=== PATIENT | male | born 1960 | race Caucasian/White ===

== ENCOUNTER 2023-11-14 18:34 | Emergency (ER) | payer OTHER, BC, SELFPAY ==
[2023-11-14 18:49] VITALS: BP 155/89; PULSE 66; RESP 18; TEMP 36.1; O2SAT 96; BMI 34.8
--- NOTE | 2023-11-14 22:26 | ED_ITS ---
HPI - Wound/Laceration General Chief Complaint: Wound/Laceration Stated Complaint: left finger laceration Time Seen by Provider: 11/14/23 22:20 Source: patient Mode of arrival: ambulatory Limitations: no limitations History of Present Illness ED Provider: Mickey Sinha PA-C HPI narrative: 63 yo male presents to the ER for evaluation of a laceration to the distal left middle finger after he cut it on a box at work. sustained a flap laceration that initially bled a lot but stopped w/ pressure. he can bend and flex the finger. no numbness or tingling. tdap up to date Onset (ago): hour(s) Place: work Patient tetanus UTD: Yes Context: accidental Associated symptoms: none Treatments prior to arrival: bandage Related Data Allergies Allergy/AdvReac Type Severity Reaction Status Date / Time No Known Allergies Allergy Verified 11/14/23 18:53 Review of Systems Review of Systems: Yes all other systems are reviewed and are negative PMFSH Social History Social History Advance Directives: No Advance Directives Information Provided: No Do you have a plan to hurt others: No Plan Physical Exam Vital Signs: Vital Signs: Last Vital Signs Temp 96.8 F 11/14/23 22:49 Pulse 87 11/14/23 22:49 Resp 16 11/14/23 22:49 BP 139/86 11/14/23 22:49 Pulse Ox 97 11/14/23 22:49 O2 Del Method Room Air 11/14/23 22:49 BMI result Body Mass Index 34.8 Appearance: Alert. Oriented X3. No acute distress. HEENT: normal inspection CVS: Normal heart rate and rhythm. Pulses normal. Respiratory: No respiratory distress. Skin: Skin warm and dry. Normal skin color. Normal skin turgor. No rashes. Extremities: small U- shaped superficial laceration to the pulp of the left 3rd digit without active bleeding. FROM. NV intact. Neuro: Oriented X 3. No motor deficit. No sensory deficit. Medical Decision Making Medical Decision Making MDM Narrative: 63 yo male presenting for evaluation of a laceration to the left middle finger on a box at work today. very superficial on exam. wound was cleaned and closed w/ exofin skin glue and steri strip. no need for imaging or abx today. wound care d/w patient. stable for d/c home. Differential Diagnosis Differential Diagnoses: The differential diagnosis associated with the presentation includes superficial laceration, deep laceration, tendon laceration, open fx Tests considered The following testing was considered but not selected: considered x-ray digit Prescription Management I considered prescription management with: Pain Medication and Antibiotic Procedures Laceration Laceration 1: Site: hand Side (If applicable): left Size (cm): 1 Description: flap Depth: simple, single layer Pre-repair: wound explored and irrigated extensively Skin layer closed with: other (steri strips, exofin skin glue) Critical Care Time Critical Care Time Critical Care Time: No Discharge Plan Discharge Clinical Impression: Laceration Patient Disposition: Home, Self-Care Instructions: Finger Laceration (ED) Additional Instructions: Steri-Strips and Dermabond were used to closure wound today. These will come off on their own, usually within a week. Do not peel them off. Do not get the wound wet for the next 48 hours. After that you can briefly wash with soap and water and pat dry. Keep clean and covered. If you develop bleeding, hold pressure for at least 10 minutes. If you develop new or worsening symptoms call 911 or come back to the ER for fu rther evaluation. Stand Alone Forms: Work/School Release Interventions: ED Discharge Assessment Last Done: 11/14/23 22:49 Discharge Date/Time: 11/14/23 22:50 Print Language: Kyrgyz
[2023-11-14 22:49] VITALS: BP 139/86; PULSE 87; RESP 16; TEMP 36; O2SAT 97
--- NOTE | 2023-11-14 22:49 | PC.NURSE ---
steri-strips/dermabond applied to close wound.
== END 2023-11-14 22:50 | disposition home or self-care (01) ==
PROVIDERS: Emergency Provider Internal Medicine
DX: S61.213A Laceration without foreign body of left middle finger without damage to nail, initial encounter (principal); M79.645 Pain in left finger(s); W26.0XXA Contact with knife, initial encounter; Y93.9 Activity, unspecified; Y92.9 Unspecified place or not applicable; Y99.0 Civilian activity done for income or pay
CPT/HCPCS: 12041; 99282; 99284